=== PATIENT | female | born 1980 | race Caucasian/White ===

== ENCOUNTER 2018-03-04 00:16 | Emergency (ER) | payer MEDICAID, OTHER ==
[~2018-03-04 00:16] MED LIST: CEPH500C3 PO
[2018-03-04 00:19] VITALS: BP 133/84; PULSE 66; RESP 15; TEMP 98.4; O2SAT 100
[2018-03-04] MEDS ORDERED: ONDANSETRON HCL 4 MG/2 ML VIAL ONE (00:27)
--- NOTE | 2018-03-04 01:34 | PD ---
HPI Chief Complaint: GI Complaint Time Seen by Provider: 01:19 Travel History International Travel<30 days: No Contact w/Intl Traveler<30days: No Traveled to known affect area: No History of Present Illness HPI The patient is a 37 year old female who presents to the [facility] emergency department with a history of abdominal pain and vomiting that began a few hours ago. Her abdominal pain is in the lower abdomen bilaterally. It is coming and going. It is sharp in character. She has had nausea and vomiting 10 x since the onset. She denies any diarrhea. Her last BM was earlier today. The patient denies any history of fever, cough, congestion, neck pain, chest pain, shortness of breath, urinary symptoms, or neurologic symptoms. LMP: this past weekend. PFSH Past Medical History Narrative Medical The patient's past medical history is significant for arthritis, anxiety, depression, ptsd, hypertension. Arthritis: Yes Asthma: No Autoimmune Disease: No Anxiety: Yes Depression: Yes Heart Rhythm Problems: No Cancer: No Cardiovascular Problems: No High Cholesterol: No Chemotherapy: No Chest Pain: No Congestive Heart Failure: No COPD: No Cerebrovascular Accident: No Diabetes: No Diminished Hearing: No Endocrine: No Gastrointestinal Disorders: Yes GERD: No Genitourinary: No Headaches: Yes Hiatal Hernia: No Heparin Induced Thrombocytopen: No Hypertension: Yes Immune Disorder: No Implanted Vascular Access Dvce: Yes Kidney Stones: No Musculoskeletal: Yes Neurologic: Yes Psychiatric: Yes (PTSD) Reproductive: No Respiratory: No Immunizations Current: Yes Migraines: Yes Radiation Therapy: No Renal Failure: No Seizures: No Sickle Cell Disease: No Sleep Apnea: No Thyroid Disease: No Ulcer: No Tetanus Vaccination: < 5 Years Influenza Vaccination: No ?: Not LMP: 03/01/2018 : 5 Para: 1 Miscarriage: 2 : 1 Dilation and Curettage (D&C): Yes Past Surgical History Narrative Surgical The patient's past surgical history is significant for right ankle ORIF, tonsil and adenoidectomy, cholecystectomy, dilation and curettage. Abdominal Surgery: Yes (gallbladder) AICD: No Arteriovenous Shunt: No Body Medical Devices: right ankle Cardiac Surgery: No Cholecystectomy: Yes Ear Surgery: No Endocrine Surgery: No Eye Surgery: No Genitourinary Surgery: No Gynecologic Surgery: Yes (d&c - 2002) Insulin Pump: No Joint Replacement: No Oral Surgery: Yes (tonsils and adenoids) Pacemaker: No Thoracic Surgery: No Tonsillectomy: Yes Other Surgery: Yes Social History Alcohol Use: Yes (rarely ) Tobacco Use: Yes Substance Use: No Allergies-Medications (Allergen,Severity, Reaction): Coded Allergies: No Known Allergies (Verified Allergy, Unknown, 03/04/18) Reported Meds & Prescriptions Reported Meds & Active Scripts Active Prochlorperazine Supp (Prochlorperazine) 25 Mg Supp 25 Mg RECTAL Q12HR PRN 1 Days Keflex (Cephalexin Monohydrate) 500 Mg Cap 500 Mg PO Q8 Review of Systems Except as stated in HPI: all other systems reviewed are Neg General / Constitutional: No: Fever Eyes: No: Visual changes HENT: No: Headaches Cardiovascular: No: Chest Pain or Discomfort Respiratory: No: Shortness of Breath Gastrointestinal: Positive: Nausea, Vomiting, Abdominal Pain, No: Diarrhea, Hematemesis, Changes in Bowel Habits, Indigestion, Loss of Appetite Genitourinary: No: Dysuria Musculoskeletal: No: Pain Skin: No Rash Neurologic: No: Weakness Psychiatric: No: Depression Endocrine: No: Polydipsia Hematologic/Lymphatic: No: Easy Bruising Physical Exam Narrative General: The patient is a well-developed well-nourished female, uncomfortable appearing on arrival, intermittently dry heaving, retching. Head and Neck exam: Head is normocephalic atraumatic. Eyes: EOMI, pupils are equal round and reactive to light. Nose: Midline septum with pink mucous membranes Mouth: Dentition unremarkable. Moist mucus membranes. Posterior oropharynx is not erythematous. No tonsillar hypertrophy. Uvula midline. Airway patent. Neck: No palpable lymphadenopathy. No nuchal rigidity. No thyromegaly. Cardiovascular: Regular rate and rhythm without murmurs, gallops, or rubs. No pulse deficit to the extremities on simultaneous auscultation and palpation of her radial artery. Lungs: Clear to auscultation bilaterally. No wheezes, rhonchi, or rales. Abdomen: Soft, with reported tenderness on palpation in bilateral lower quadrants of the abdomen. No point tenderness specifically on palpation of her McBurney's point. Negative Fernando sign. Normal bowel sounds are audible. No guarding, rebound, or rigidity. Extremities: No clubbing, cyanosis, or edema. 2+ pulses in all 4 extremities. Back: No spinous process tenderness to palpation. No costovertebral angle tenderness to palpation. Neurologic Exam: Grossly nonfocal Skin Exam: No rash noted. Intact skin that is warm and diaphoretic Data Data Last Documented VS Vital Signs Date Time Temp Pulse Resp B/P (MAP) Pulse Ox O2 Delivery O2 Flow Rate FiO2 03/04/18 00:19 98.4 66 15 133/84 (100) 100 Orders Orders Ondansetron Inj (Zofran Inj) (03/04/18 00:27) Complete Blood Count With Diff (03/04/18 01:39) Comprehensive Metabolic Panel (03/04/18 01:39) C-Reactive Protein (Crp) (03/04/18 01:39) Lipase (03/04/18 01:39) Urinalysis - C+S If Indicated (03/04/18 01:39) Magnesium (Mg) (03/04/18 01:39) Iv Access Insert/Monitor (03/04/18 01:39) Ecg Monitoring (03/04/18 01:39) Oximetry (03/04/18 01:39) Ed Urine Pregnancytest Poc (03/04/18 01:39) Sodium Chlor 0.9% 1000 Ml Inj (Ns 1000 M (03/04/18 02:30) Ondansetron Inj (Zofran Inj) (03/04/18 02:30) Sodium Chlor 0.9% 1000 Ml Inj (Ns 1000 M (03/04/18 03:00) Prochlorperazine Inj (Compazine Inj) (03/04/18 03:00) Ct Abd/Pel W Iv Contrast(Rout) (03/04/18 03:00) Ketorolac Inj (Toradol Inj) (03/04/18 03:15) Iohexol 350 Inj (Omnipaque 350 Inj) (03/04/18 03:48) Oral Rehydration (03/04/18 04:40) Prochlorperazine Inj (Compazine Inj) (03/04/18 05:00) Cath For Specimen (03/04/18 05:33) Labs Laboratory Tests Test 03/04/18 01:30 03/04/18 06:10 White Blood Count 13.0 TH/MM3 Red Blood Count 4.66 MIL/MM3 Hemoglobin 14.1 GM/DL Hematocrit 42.5 % Mean Corpuscular Volume 91.1 FL Mean Corpuscular Hemoglobin 30.3 PG Mean Corpuscular Hemoglobin Concent 33.3 % Red Cell Distribution Width 13.6 % Platelet Count 354 TH/MM3 Mean Platelet Volume 9.7 FL Neutrophils (%) (Auto) 75.1 % Lymphocytes (%) (Auto) 20.7 % Monocytes (%) (Auto) 2.3 % Eosinophils (%) (Auto) 1.3 % Basophils (%) (Auto) 0.6 % Neutrophils # (Auto) 9.8 TH/MM3 Lymphocytes # (Auto) 2.7 TH/MM3 Monocytes # (Auto) 0.3 TH/MM3 Eosinophils # (Auto) 0.2 TH/MM3 Basophils # (Auto) 0.1 TH/MM3 CBC Comment DIFF FINAL Differential Comment Blood Urea Nitrogen 12 MG/DL Creatinine 0.84 MG/DL Random Glucose 108 MG/DL Total Protein 8.5 GM/DL Albumin 4.0 GM/DL Calcium Level 9.2 MG/DL Magnesium Level 2.2 MG/DL Alkaline Phosphatase 84 U/L Aspartate Amino Transf (AST/SGOT) 24 U/L Alanine Aminotransferase (ALT/SGPT) 26 U/L Total Bilirubin 0.3 MG/DL Sodium Level 141 MEQ/L Potassium Level 4.4 MEQ/L Chloride Level 107 MEQ/L Carbon Dioxide Level 26.5 MEQ/L Anion Gap 8 MEQ/L Estimat Glomerular Filtration Rate 77 ML/MIN C-Reactive Protein LESS THAN 0.29 MG/DL Lipase 210 U/L Urine Color LIGHT-YELLOW Urine Turbidity CLEAR Urine pH 7.0 Urine Specific Shubert GREATER THAN 1.050 Urine Protein NEG mg/dL Urine Glucose (UA) NEG mg/dL Urine Ketones 10 mg/dL Urine Occult Blood NEG Urine Nitrite NEG Urine Bilirubin NEG Urine Urobilinogen LESS THAN 2.0 MG/DL Urine Leukocyte Esterase NEG Urine WBC LESS THAN 1 /hpf Urine Squamous Epithelial Cells 2 /hpf Urine Mucus FEW /lpf Microscopic Urinalysis Comment CULT NOT INDICATED MDM Medical Decision Making Medical Screen Exam Complete: Yes Emergency Medical Condition: Yes Medical Record Reviewed: Yes Interpretation(s) Last Impressions Abdomen/Pelvis CT 03/04/18 0300 Signed Impressions: Service Date/Time: Sunday, March 04, 2018 03:48 - CONCLUSION: 1. Previous cholecystectomy. 2 cm left ovarian cyst. No obstruction, free fluid or free air. 2. Lobulated kidneys with multiple areas of suspected renal parenchymal scarring that have increased from 2015. Wai Hills MD Differential Diagnosis Bowel obstruction, versus appendicitis, versus pancreatitis, Narrative Course During the course of the patient's emergency department visit, the patient's history, examination, and differential diagnosis were reviewed with the patient. The patient was placed on a classroom monitor with oximetry and frequent blood pressure monitoring. The patient had IV access obtained and blood work sent for analysis. The patient was initially provided normal saline 2 L and total IV fluid bolus while in the emergency department. The patient was initially given Zofran for nausea without much response, followed by Compazine 5 mg IV which improved the nausea and was repeated 1. The patient's laboratory studies were reviewed and remarkable for white count of 13, hemoglobin 14.1, platelets 354 with neutrophils 75.1, CMP is remarkable for GFR 77, glucose 108, C-reactive protein less than 0.29, total protein 8.5, lipase 210, urinalysis shows concentrated urine 10 ketones otherwise unremarkable Radiology studies were reviewed and remarkable for a CT scan of the abdomen and pelvis shows previous cholecystectomy, 2 cm left ovarian cyst, no obstruction, free fluid, or free air. Lobulated kidneys with multiple areas of suspected renal parenchymal scarring that have increased from 2015. The patient was able to tolerate p.o. hydration. The patient will be discharged home with a prescription for Compazine suppository. The patient is instructed to follow-up with her primary care physician for reexamination in 2 days. The patient is instructed to push fluids with electrolyte rich solution such as Pedialyte or Gatorade. The patient is resting comfortably and feels better, is alert and in no distress. The patient's results and examination findings were discussed with the patient. The repeat examination is unremarkable and benign. The history, exam, diagnostic testing, and current condition do not suggest any significant pathology to warrant further testing, continued ED treatment, admission, or surgical evaluation at this point. The vital signs have been stable. The patient does not have uncontrollable pain, intractable vomiting, or other significant symptoms. The patient's condition is stable and appropriate for discharge. The patient will pursue further outpatient evaluation with a primary care physician or other designated or consulting physician as indicated in the discharge instructions. The patient expressed understanding and was agreeable with this plan. Diagnosis Primary Impression: Abdominal pain Qualified Codes: R10.30 - Lower abdominal pain, unspecified Additional Impression: Nausea & vomiting Qualified Codes: R11.2 - Nausea with vomiting, unspecified Referrals: Primary Care Physician 2 days Patient Instructions: Abdominal Pain (ED), Acute Nausea and Vomiting (ED), General Instructions Med/Other Pt SpecificInfo: Prescription(s) given Scripts Prochlorperazine Supp (Prochlorperazine Supp) 25 Mg Supp 25 MG RECTAL Q12HR Y for NAUSEA OR VOMITING for 1 Day, SUPP 0 Refills Prov: Rosette Recinos MD 03/04/18 Disposition: DISCHARGE HOME Condition: Stable Rosette Recinos MD Mar 04, 2018 01:34
[2018-03-04 02:04] LABS: AUTOMATED NEUTROPHIL # 9.8 TH/MM3 (1.8-7.7); BASOPHIL # 0.1 TH/MM3 (0-0.2); BASOPHIL % 0.6 % (0.0-2.0); EOSINOPHIL # 0.2 TH/MM3 (0-0.4); EOSINOPHIL % 1.3 % (0.0-4.0); HEMATOCRIT 42.5 % (35.0-46.0); HEMOGLOBIN 14.1 GM/DL (11.6-15.3); LYMPH % 20.7 % (9.0-44.0); LYMPHOCYTE # 2.7 TH/MM3 (1.0-4.8); MEAN CELL VOLUME 91.1 FL (80.0-100.0); MEAN CORPUSCULAR HEMOGLOBIN 30.3 PG (27.0-34.0); MEAN CORPUSCULAR HGB CONC 33.3 % (32.0-36.0); MEAN PLATELET VOLUME 9.7 FL (7.0-11.0); MONO % 2.3 % (0.0-8.0); MONOCYTE # 0.3 TH/MM3 (0-0.9); NEUT % 75.1 % (16.0-70.0); PLATELET COUNT 354 TH/MM3 (150-450); RED BLOOD COUNT 4.66 MIL/MM3 (4.00-5.30); RED CELL DISTRIBUTION WIDTH 13.6 % (11.6-17.2)
[2018-03-04 02:28] LABS: ALKALINE PHOSPHATASE 84 U/L (45-117); TOTAL BILIRUBIN ADULT 0.3 MG/DL (0.2-1.0); TOTAL PROTEIN 8.5 GM/DL (6.4-8.2)
[2018-03-04] MEDS ORDERED: ONDANSETRON HCL 4 MG/2 ML VIAL IV ONE (02:30)
[2018-03-04] MEDS ORDERED: SODIUM CHLOR 0.9% 1000 ML INJ 1,000 ML IV ONE ×2 (02:30→03:00)
[2018-03-04 02:31] LABS: ALT (GPT) 26 U/L (10-53); AST (GOT) 24 U/L (15-37); BICARBONATE 26.5 MEQ/L (21.0-32.0); BLOOD UREA NITROGEN 12 MG/DL (7-18); C-REACTIVE PROTEIN LESS THAN 0.29 MG/DL (0.00-0.30); CALCIUM 9.2 MG/DL (8.5-10.1); CHLORIDE 107 MEQ/L (98-107); CREATININE 0.84 MG/DL (0.50-1.00); GLOMERULAR FILTRATION RATE 77 ML/MIN (>89); GLUCOSE,RANDOM 108 MG/DL (74-106); MAGNESIUM 2.2 MG/DL (1.5-2.5); SODIUM (NA) 141 MEQ/L (136-145)
[2018-03-04] MEDS ORDERED: PROCHLORPERAZINE INJ 10 MG/2 ML VIAL IV PUSH ONE ×2 (03:00→05:00)
[2018-03-04] MEDS ORDERED: KETOROLAC TROMETHAMINE 30 MG/ML (IVP) VIAL IV PUSH ONE (03:15)
[2018-03-04] MEDS ORDERED: IOHEXOL 350 MG/ML 10 ML VIAL (for RAD DIAG) IVCONTRAST ONE (03:48)
--- NOTE | 2018-03-04 04:03 | RADRPT ---
EXAM DATE/TIME: 03/04/2018 03:48 [facility] COMPARISON: No previous studies available for comparison. INDICATIONS : Abdomen pain with vomiting. IV CONTRAST: 94 cc Omnipaque 350 (iohexol) IV ORAL CONTRAST: No oral contrast ingested. RADIATION DOSE: 9.74 CTDIvol (mGy) MEDICAL HISTORY : Hypertension. SURGICAL HISTORY : Cholecystectomy. ENCOUNTER: Initial ACUITY: 1 day PAIN SCALE: 7/10 LOCATION: abdomen TECHNIQUE: Volumetric scanning of the abdomen and pelvis was performed. Using automated exposure control and ad justment of the mA and/or kV according to patient size, radiation dose was kept as low as reasonably achievable to obtain optimal diagnostic quality images. DICOM format image data is available electro nically for review and comparison. FINDINGS: Lung bases are clear. No acute findings in the liver, spleen, adrenals or pancreas. Previous cholecys tectomy. Kidneys have a slightly lobulated appearance slightly worse than in 2015. No pelvic masses. No free fluid. No adenopathy. Probable 2 cm left ovarian cyst. CONCLUSION: 1. Previous cholecystectomy. 2 cm left ovarian cyst. No obstruction, free fluid or free air. 2. Lobulated kidneys with multiple areas of suspected renal parenchymal scarring that have increased from 2015. Wai Hills MD on March 04, 2018 at 3:56 Board Certified Radiologist. This report was verified electronically.
[2018-03-04] MEDS ORDERED: PROC25SU22 RECTAL (06:28)
[2018-03-04 06:46] LABS: BILIRUBIN, URINE NEG (NEG); BLOOD, URINE NEG (NEG); GLUCOSE,URINE NEG (NEG); KETONE, URINE 10 mg/dL (NEG); MUCUS URINE FEW /lpf (OCC); NITRITE,URINE NEG (NEG); SQUAMOUS EPITHELIAL CELL URINE 2 /hpf (0-5); URINE COLOR LIGHT-YELLOW (YELLW/STRAW); URINE LEUKOCYTE ESTERASE NEG (NEG)
[2018-03-04 07:35] VITALS: BP 163/82
[2018-03-04 08:07] VITALS: O2SAT 98
== END 2018-03-04 07:45 | disposition home or self-care (01) ==
LOC: NEPC 00:16
DX: R10.30 Lower abdominal pain, unspecified (principal); R11.2 Nausea with vomiting, unspecified; Q63.1 Lobulated, fused and horseshoe kidney; N83.202 Unspecified ovarian cyst, left side; I10 Essential (primary) hypertension; F43.10 Post-traumatic stress disorder, unspecified; F32.9 Major depressive disorder, single episode, unspecified; Z90.49 Acquired absence of other specified parts of digestive tract; Z72.0 Tobacco use
CPT/HCPCS: 74177; 80053; 81001; 83690; 83735; 85025; 86140; 96374; 96375; 99284; J0780; J1885; J2405; J7030; Q9967

== ENCOUNTER 2018-03-05 20:01 | Observation (INO) | payer OTHER ==
[~2018-03-05] VITALS: Ht 157.5 cm; Wt 75.0 kg
[~2018-03-05 20:01] MED LIST changes: +PROC25SU22 RECTAL
[2018-03-05 20:06] VITALS: BP 171/112; PULSE 83; RESP 18; TEMP 98.1; O2SAT 98
[2018-03-05 20:09] VITALS: O2SAT 98
[2018-03-05] MEDS ORDERED: SODIUM CHLOR 0.9% 1000 ML INJ 1,000 ML IV ONE ×2 (20:15→22:45)
[2018-03-05] MEDS ORDERED: METOCLOPRAMIDE HCL 10 MG/2 ML VIAL IV PUSH ONE ×2 (20:15→23:30)
--- NOTE | 2018-03-05 20:20 | PD ---
HPI Chief Complaint: GI Complaint Time Seen by Provider: 20:06 Travel History International Travel<30 days: No Contact w/Intl Traveler<30days: No Traveled to known affect area: No History of Present Illness HPI The patient is a 37 year old female who presents to the [facility] emergency department with a history of reportedly not feeling well for the last 3 days. The patient reports having symptoms of abdominal pain, a burning sensation in her chest, and recurrent vomiting too many times to count. She reports that her emesis appears to be brown. The patient was evaluated in the emergency department regarding this on March 04. Laboratory studies and CT scan of the abdomen and pelvis were done at that time which showed no acute abnormality. The patient reports that because she has been coming to the emergency department for her recent illness she has also been experiencing increased anxiety with panic attacks. She reports having history of anxiety, depression, and posttraumatic stress disorder. She reports that she believes that her anxiety is being triggered as this is the place that she had her miscarriage a few months ago. The patient reports that when she found out that she was she stopped taking her psychiatric medications which include Vistaril, trazodone, Cymbalta, and Ativan. The patient reports that at times she coughs with the acid washing up in the back of her throat. She denies being on any acid reducers or having any prior history of acid reflux, peptic ulcer disease, or gastritis per she denies any alcohol consumption. On review of systems otherwise, she denies having any recent known fevers, neck pain, shortness of breath, diarrhea, urinary symptoms, or neurologic symptoms. [facility] Past Medical History Narrative Medical The patient's past medical history is significant for arthritis, anxiety disorder, depression, posttraumatic stress disorder, hypertension. Arthritis: Yes Asthma: No Autoimmune Disease: No Anxiety: Yes Depression: Yes Heart Rhythm Problems: No Cancer: No Cardiovascular Problems: No High Cholesterol: No Chemotherapy: No Chest Pain: No Congestive Heart Failure: No COPD: No Cerebrovascular Accident: No Diabetes: No Diminished Hearing: No Endocrine: No Gastrointestinal Disorders: Yes GERD: No Genitourinary: No Headaches: Yes Hiatal Hernia: No Heparin Induced Thrombocytopen: No Hypertension: Yes Immune Disorder: No Implanted Vascular Access Dvce: Yes Kidney Stones: No Musculoskeletal: Yes Neurologic: Yes Psychiatric: Yes (PTSD) Reproductive: No Respiratory: No Immunizations Current: Yes Migraines: Yes Radiation Therapy: No Renal Failure: No Seizures: No Sickle Cell Disease: No Sleep Apnea: No Thyroid Disease: No Ulcer: No Tetanus Vaccination: Unknown Influenza Vaccination: No ?: Not LMP: 02/28/18 : 5 Para: 1 Miscarriage: 2 : 1 Dilation and Curettage (D&C): Yes Past Surgical History Narrative Surgical The patient's past surgical history is significant for right ankle ORIF, tonsil and adenoidectomy, cholecystectomy, dilation and curettage Abdominal Surgery: Yes (gallbladder) AICD: No Arteriovenous Shunt: No Body Medical Devices: right ankle Cardiac Surgery: No Cholecystectomy: Yes Ear Surgery: No Endocrine Surgery: No Eye Surgery: No Genitourinary Surgery: No Gynecologic Surgery: Yes (d&c - 2002) Insulin Pump: No Joint Replacement: No Oral Surgery: Yes (tonsils and adenoids) Pacemaker: No Thoracic Surgery: No Tonsillectomy: Yes Other Surgery: Yes Social History Alcohol Use: Yes (rarely ) Tobacco Use: Yes (3 cigarettes per day) Substance Use: Yes (marijuana) Allergies-Medications (Allergen,Severity, Reaction): Coded Allergies: No Known Allergies (Verified Allergy, Unknown, 03/04/18) Reported Meds & Prescriptions Reported Meds & Active Scripts Active Prochlorperazine Supp (Prochlorperazine) 25 Mg Supp 25 Mg RECTAL Q12HR PRN 1 Days Review of Systems Except as stated in HPI: all other systems reviewed are Neg General / Constitutional: No: Fever Eyes: No: Visual changes HENT: No: Headaches Cardiovascular: Positive: Chest Pain or Discomfort (A burning sensation), No: Dyspnea on exertion Respiratory: Positive: Cough, No: Shortness of Breath Gastrointestinal: Positive: Nausea, Vomiting, Abdominal Pain, Indigestion, No: Diarrhea, Constipation, Changes in Bowel Habits, Loss of Appetite Genitourinary: No: Dysuria Musculoskeletal: No: Pain Skin: No Rash Neurologic: No: Weakness, Focal Abnormalities, Change in Mentation, Slurred Speech, Sensory Disturbance Psychiatric: No: Depression Endocrine: No: Polydipsia Hematologic/Lymphatic: No: Easy Bruising Physical Exam Narrative General: The patient is a well-developed well-nourished female, uncomfortable appearing on arrival with intermittent dry heaving, retching. She does have an emesis basin at the bedside that has brown emesis in it. No blood per Head and Neck exam: Head is normocephalic atraumatic. Eyes: EOMI, pupils are equal round and reactive to light. Nose: Midline septum with pink mucous membranes Mouth: Dentition unremarkable. Moist mucus membranes. Posterior oropharynx is not erythematous. No tonsillar hypertrophy. Uvula midline. Airway patent. Neck: No palpable lymphadenopathy. No nuchal rigidity. No thyromegaly. Cardiovascular: Regular rate and rhythm without murmurs, gallops, or rubs. No pulse deficit to the extremities on simultaneous auscultation and palpation of her radial artery. Lungs: Clear to auscultation bilaterally. No wheezes, rhonchi, or rales. Abdomen: Soft, without tenderness to palpation in all 4 quadrants of the abdomen. No guarding, rebound, or rigidity. Normal bowel sounds are audible. No tenderness on palpation of McBurney's point. Negative Fernando sign. Extremities: No clubbing, cyanosis, or edema. 2+ pulses in all 4 extremities. No calf tenderness on palpation peer Back: No costovertebral angle tenderness to palpation. Neurologic Exam: Grossly nonfocal. Skin Exam: No rash noted. Intact skin that is warm and dry. Data Data Last Documented VS Vital Signs Date Time Temp Pulse Resp B/P (MAP) Pulse Ox O2 Delivery O2 Flow Rate FiO2 03/05/18 20:09 98 Room Air 03/05/18 20:06 98.1 83 18 171/112 (131) Orders Orders Complete Blood Count With Diff (03/05/18 20:07) Comprehensive Metabolic Panel (03/05/18 20:07) Lipase (03/05/18 20:07) Urinalysis - C+S If Indicated (03/05/18 20:07) Magnesium (Mg) (03/05/18 20:07) Iv Access Insert/Monitor (03/05/18 20:07) Ecg Monitoring (03/05/18 20:07) Oximetry (03/05/18 20:07) Drug Screen, Random Urine (03/05/18 20:07) Alcohol (Ethanol) (03/05/18 20:07) Sodium Chlor 0.9% 1000 Ml Inj (Ns 1000 M (03/05/18 20:15) Metoclopramide Inj (Reglan Inj) (03/05/18 20:15) Pantoprazole Inj (Protonix Inj) (03/05/18 20:30) Morphine Inj (Morphine Inj) (03/05/18 20:30) Chest, Single Ap (03/05/18 20:19) Ed Urine Pregnancytest Poc (03/05/18 20:19) Urine Culture (03/05/18 20:15) Sodium Chlor 0.9% 1000 Ml Inj (Ns 1000 M (03/05/18 22:45) Ceftriaxone Inj (Rocephin Inj) (03/05/18 22:45) Potassium Chloride (Kcl) (03/05/18 22:45) Admit Order (Ed Use Only) (03/05/18 22:54) Labs Laboratory Tests Test 03/05/18 20:15 White Blood Count 9.7 TH/MM3 Red Blood Count 4.79 MIL/MM3 Hemoglobin 14.4 GM/DL Hematocrit 42.2 % Mean Corpuscular Volume 88.0 FL Mean Corpuscular Hemoglobin 30.0 PG Mean Corpuscular Hemoglobin Concent 34.1 % Red Cell Distribution Width 13.5 % Platelet Count 349 TH/MM3 Mean Platelet Volume 8.9 FL Neutrophils (%) (Auto) 77.7 % Lymphocytes (%) (Auto) 18.9 % Monocytes (%) (Auto) 3.1 % Eosinophils (%) (Auto) 0.0 % Basophils (%) (Auto) 0.3 % Neutrophils # (Auto) 7.5 TH/MM3 Lymphocytes # (Auto) 1.8 TH/MM3 Monocytes # (Auto) 0.3 TH/MM3 Eosinophils # (Auto) 0.0 TH/MM3 Basophils # (Auto) 0.0 TH/MM3 CBC Comment DIFF FINAL Differential Comment Urine Color YELLOW Urine Turbidity HAZY Urine pH 8.0 Urine Specific [place] 1.025 Urine Protein 100 mg/dL Urine Glucose (UA) NEG mg/dL Urine Ketones 80 mg/dL Urine Occult Blood TRACE Urine Nitrite NEG Urine Bilirubin NEG Urine Urobilinogen 2.0 MG/DL Urine Leukocyte Esterase MOD Urine RBC 8 /hpf Urine WBC 22 /hpf Urine Squamous Epithelial Cells 27 /hpf Urine Bacteria MOD /hpf Urine Hyaline Casts 2 /lpf Urine Mucus MOD /lpf Microscopic Urinalysis Comment CULTURE INDICATED Blood Urea Nitrogen 11 MG/DL Creatinine 0.87 MG/DL Random Glucose 102 MG/DL Total Protein 8.2 GM/DL Albumin 4.3 GM/DL Calcium Level 9.8 MG/DL Magnesium Level 2.0 MG/DL Alkaline Phosphatase 84 U/L Aspartate Amino Transf (AST/SGOT) 7 U/L Alanine Aminotransferase (ALT/SGPT) 21 U/L Total Bilirubin 0.3 MG/DL Sodium Level 140 MEQ/L Potassium Level 3.3 MEQ/L Chloride Level 102 MEQ/L Carbon Dioxide Level 27.7 MEQ/L Anion Gap 10 MEQ/L Estimat Glomerular Filtration Rate 74 ML/MIN Lipase 143 U/L Urine Opiates Screen NEG Urine Barbiturates Screen NEG Urine Amphetamines Screen NEG Urine Benzodiazepines Screen NEG Urine Cocaine Screen POS Urine Cannabinoids Screen POS Ethyl Alcohol Level LESS THAN 3 MG/DL MDM Medical Decision Making Medical Screen Exam Complete: Yes Emergency Medical Condition: Yes Medical Record Reviewed: Yes Interpretation(s) Last Impressions Chest X-Ray 03/05/182018 Signed Impressions: Service Date/Time: Monday, March 05, 2018 20:29 - CONCLUSION: No evidence of acute cardiopulmonary disease. Danny Gao MD Differential Diagnosis Aspiration, versus acid reflux, versus gastritis, viral syndrome, versus pancreatitis, versus electrolyte derangements, versus dehydration Narrative Course During the course of the patient's emergency department visit, the patient's history, examination, and differential diagnosis were reviewed with the patient. The patient was placed on a professor of medicine with oximetry and frequent blood pressure monitoring. The patient had IV access obtained and blood work sent for analysis. The patient was initially provided normal saline 1 L IV fluid bolus, Reglan 5 mg IV, Protonix 40 mg IV The patient's studies were reviewed and remarkable for A white count of 9.7, hemoglobin 14.4, platelets 349 with 77.7 neutrophils. CMP is remarkable for potassium of 3.3, GFR 74, AST 7, lipase 143. An alcohol level that is less than 3, urine drug screen is positive for cannabinoids and cocaine. Urinalysis shows signs of urinary tract infection. The patient was started on Rocephin 1 g IV, continued on a second liter of normal saline IV. The patient continued to have nausea and vomiting. The patient was given an additional dose of antiemetic. The patient will be admitted to the hospital for intractable nausea vomiting. The patient's results were discussed with the patient, including the plan of care. I explained that further testing and/ or monitoring is indicated based on the patient's history, examination, and/ or laboratory findings. Therefore, I recommended admission for additional evaluation. The patient expressed understanding and was agreeable with this plan. The patient was admitted to the hospital in stable condition and sent to a bed under the care of the [facility] service. Physician Communication Physician Communication The patient's case including history, pertinent physical examination findings, and laboratory studies were discussed with Dr. Jalloh. It was agreed that the patient would be admitted to the [facility] service. Diagnosis Primary Impression: Nausea & vomiting Qualified Codes: R11.2 - Nausea with vomiting, unspecified Additional Impression: Urinary tract infection Qualified Codes: N39.0 - Urinary tract infection, site not specified; R31.9 - Hematuria, unspecified Admitting Information Admitting Physician Requests: Rosette Ramirez MD Mar 05, 2018 20:20
[2018-03-05] MEDS ORDERED: PANTOPRAZOLE SODIUM 40 MG VIAL IV PUSH ONE (20:30)
[2018-03-05] MEDS ORDERED: MORPHINE SULFATE 2 MG/ML SYRINGE IV PUSH ONE (20:30)
[2018-03-05 20:38] LABS: AUTOMATED NEUTROPHIL # 7.5 TH/MM3 (1.8-7.7); BASOPHIL % 0.3 % (0.0-2.0); HEMATOCRIT 42.2 % (35.0-46.0); HEMOGLOBIN 14.4 GM/DL (11.6-15.3); LYMPH % 18.9 % (9.0-44.0); LYMPHOCYTE # 1.8 TH/MM3 (1.0-4.8); MEAN CORPUSCULAR HGB CONC 34.1 % (32.0-36.0); MEAN PLATELET VOLUME 8.9 FL (7.0-11.0); MONO % 3.1 % (0.0-8.0); MONOCYTE # 0.3 TH/MM3 (0-0.9); NEUT % 77.7 % (16.0-70.0); PLATELET COUNT 349 TH/MM3 (150-450); RED BLOOD COUNT 4.79 MIL/MM3 (4.00-5.30); RED CELL DISTRIBUTION WIDTH 13.5 % (11.6-17.2); WHITE BLOOD COUNT 9.7 TH/MM3 (4.0-11.0)
--- NOTE | 2018-03-05 20:45 | RADRPT ---
EXAM DATE/TIME: 03/05/2018 20:29 [place] COMPARISON: No previous studies available for comparison. INDICATIONS : Cough. MEDICAL HISTORY : None. SURGICAL HISTORY : None. ENCOUNTER: Initial ACUITY: 1 day PAIN SCORE: 0/10 LOCATION: Bilateral chest FINDINGS: A single view of the chest demonstrates the lungs to be symmetrically aerated without evidence of mas s, infiltrate or effusion. The cardiomediastinal contours are unremarkable. Osseous structures are intact. CONCLUSION: No evidence of acute cardiopulmonary disease. Danny Gao MD on March 05, 2018 at 20:43 Board Certified Radiologist. This report was verified electronically.
[2018-03-05 20:49] LABS: BACTERIA, URINE MOD /hpf; BILIRUBIN, URINE NEG (NEG); BLOOD, URINE TRACE (NEG); GLUCOSE,URINE NEG (NEG); HYALINE CAST, URINE 2 /lpf (RARE); KETONE, URINE 80 mg/dL (NEG); MUCUS URINE MOD /lpf (OCC); NITRITE,URINE NEG (NEG); SQUAMOUS EPITHELIAL CELL URINE 27 /hpf (0-5); URINE COLOR YELLOW (YELLW/STRAW); URINE LEUKOCYTE ESTERASE MOD (NEG)
[2018-03-05 21:03] LABS: ALBUMIN 4.3 GM/DL (3.4-5.0); AST (GOT) 7 U/L (15-37); BICARBONATE 27.7 MEQ/L (21.0-32.0); BLOOD UREA NITROGEN 11 MG/DL (7-18); CALCIUM 9.8 MG/DL (8.5-10.1); CHLORIDE 102 MEQ/L (98-107); CREATININE 0.87 MG/DL (0.50-1.00); GLOMERULAR FILTRATION RATE 74 ML/MIN (>89); GLUCOSE,RANDOM 102 MG/DL (74-106); SODIUM (NA) 140 MEQ/L (136-145)
[2018-03-05 21:07] LABS: ALKALINE PHOSPHATASE 84 U/L (45-117); ALT (GPT) 21 U/L (10-53); TOTAL BILIRUBIN ADULT 0.3 MG/DL (0.2-1.0); TOTAL PROTEIN 8.2 GM/DL (6.4-8.2)
[2018-03-05] MEDS ORDERED: cefTRIAXone INJ 1,000 MG in SODIUM CHLORIDE 0.9% INJ 100 ML IV ONE (22:45)
[2018-03-05] MEDS ORDERED: POTASSIUM CHLORIDE 20 MEQ CONTROLLED RELEASE TAB PO ONE (22:45)
[2018-03-05 22:58] VITALS: BP 158/81; PULSE 89; RESP 18; O2SAT 99
[2018-03-05] MEDS ORDERED: ACETAMINOPHEN 325 MG TAB PO ONE (23:30)
--- NOTE | 2018-03-06 00:40 | HHI.HP ---
[facility] Primary [facility] Physician Danny Roman MD Admission Diagnosis Intractable vomiting, UTI Diagnoses: Travel History International Travel<30 Days: No Contact w/Intl Traveler <30 Da: No Traveled to Known Affected Are: No History of Present Illness 37-year-old female with a past medical history significant for anxiety presents to the emergency department for the second time in 24 hours for the evaluation of nausea/vomiting. The patient reports her symptoms started approximately 3 days ago. She was seen in the emergency department yesterday, discharged with Compazine however given insurance complications she ended up receiving Phenergan. She reports the Phenergan did not relieve her nausea and vomiting and she has been unable to tolerate any p.o. until her arrival in the emergency department today. She endorses subjective fevers/chills. Denies any chest pain or shortness of breath. Crampy abdominal pain. No weakness or fatigue. No lateralizing signs/symptoms. No dysuria. Review of Systems Except as stated in HPI: all other systems reviewed are Neg Past Family Social History Past Medical History Anxiety Past Surgical History Tonsillectomy Cholecystectomy Reported Medications Reported Meds & Active Scripts Active Prochlorperazine Supp (Prochlorperazine) 25 Mg Supp 25 Mg RECTAL Q12HR PRN 1 Days Allergies: Coded Allergies: No Known Allergies (Verified Allergy, Unknown, 03/04/18) Family History Father with coronary artery disease Social History Smokes approximately half a pack per day. Rare alcohol. Positive marijuana. Denies all other illicit drugs. Physical Exam Vital Signs Vital Signs Date Time Temp Pulse Resp B/P (MAP) Pulse Ox O2 Delivery O2 Flow Rate FiO2 03/05/18 22:58 89 18 158/81 (106) 99 Room Air 03/05/18 20:09 98 Room Air 03/05/18 20:06 98.1 83 18 171/112 (131) 98 Physical Exam GENERAL: female sitting up in bed SKIN: No rashes, ecchymoses or lesions. Cool and dry. HEAD: Atraumatic. Normocephalic. No temporal or scalp tenderness. EYES: Pupils equal round and reactive. Extraocular motions intact. No scleral icterus. No injection or drainage. ENT: Nose without bleeding, purulent drainage or septal hematoma. Throat without erythema, tonsillar hypertrophy or exudate. Uvula midline. Airway patent. NECK: Trachea midline. No JVD or lymphadenopathy. Supple, nontender, no meningeal signs. CARDIOVASCULAR: Regular rate and rhythm without murmurs, gallops, or rubs. RESPIRATORY: Clear to auscultation. Breath sounds equal bilaterally. No wheezes , rales, or rhonchi. GASTROINTESTINAL: Abdomen soft, mildly tender to palpation, nondistended. No hepato-splenomegaly, or palpable masses. No guarding. MUSCULOSKELETAL: Extremities without clubbing, cyanosis, or edema. No joint tenderness, effusion, or edema noted. No calf tenderness. NEUROLOGICAL: Awake and alert. Cranial nerves II through XII intact. Motor and sensory grossly within normal limits. Normal speech. Laboratory Laboratory Tests Test 03/05/18 20:15 White Blood Count 9.7 Red Blood Count 4.79 Hemoglobin 14.4 Hematocrit 42.2 Mean Corpuscular Volume 88.0 Mean Corpuscular Hemoglobin 30.0 Mean Corpuscular Hemoglobin Concent 34.1 Red Cell Distribution Width 13.5 Platelet Count 349 Mean Platelet Volume 8.9 Neutrophils (%) (Auto) 77.7 Lymphocytes (%) (Auto) 18.9 Monocytes (%) (Auto) 3.1 Eosinophils (%) (Auto) 0.0 Basophils (%) (Auto) 0.3 Neutrophils # (Auto) 7.5 Lymphocytes # (Auto) 1.8 Monocytes # (Auto) 0.3 Eosinophils # (Auto) 0.0 Basophils # (Auto) 0.0 CBC Comment DIFF FINAL Differential Comment Urine Color YELLOW Urine Turbidity HAZY Urine pH 8.0 Urine Specific [place] 1.025 Urine Protein 100 Urine Glucose (UA) NEG Urine Ketones 80 Urine Occult Blood TRACE Urine Nitrite NEG Urine Bilirubin NEG Urine Urobilinogen 2.0 Urine Leukocyte Esterase MOD Urine RBC 8 Urine WBC 22 Urine Squamous Epithelial Cells 27 Urine Bacteria MOD Urine Hyaline Casts 2 Urine Mucus MOD Microscopic Urinalysis Comment CULTURE INDICATED Blood Urea Nitrogen 11 Creatinine 0.87 Random Glucose 102 Total Protein 8.2 Albumin 4.3 Calcium Level 9.8 Magnesium Level 2.0 Alkaline Phosphatase 84 Aspartate Amino Transf (AST/SGOT) 7 Alanine Aminotransferase (ALT/SGPT) 21 Total Bilirubin 0.3 Sodium Level 140 Potassium Level 3.3 Chloride Level 102 Carbon Dioxide Level 27.7 Anion Gap 10 Estimat Glomerular Filtration Rate 74 Lipase 143 Urine Opiates Screen NEG Urine Barbiturates Screen NEG Urine Amphetamines Screen NEG Urine Benzodiazepines Screen NEG Urine Cocaine Screen POS Urine Cannabinoids Screen POS Ethyl Alcohol Level LESS THAN 3 Date/Time Source Procedure Growth Status 03/05/18 20:15 Urine Random Urine Urine Culture Pending Received Result Diagram: 03/05/18201403/05/182014 Caprini VTE Risk Assessment Caprini VTE Risk Assessment: No/Low Risk (score <= 1) Caprini Risk Assessment Model Point Value = 1 Point Value = 2 Point Value = 3 Point Value = 5 Age 41-60 Minor surgery BMI > 25 kg/m2 Swollen legs Varicose veins or History of unexplained or recurrent spontaneous Oral contraceptives or hormone replacement Sepsis (< 1 month) Serious lung disease, including pneumonia (< 1 month) Abnormal pulmonary function Acute myocardial infarction Congestive heart failure (< 1 month) History of inflammatory bowel disease Medical patient at bed rest Age 61-74 Arthroscopic surgery Major open surgery (> 45 min) Laparoscopic surgery (> 45 min) Malignancy Confined to bed (> 72 hours) Immobilizing plaster cast Central venous access Age >= 75 History of VTE Family history of VTE Factor V Leiden Prothrombin [id number] Lupus anticoagulant Anticardiolipin antibodies Elevated serum homocysteine Heparin-induced thrombocytopenia Other congenital or acquired thrombophilia Stroke (< 1 month) Elective arthroplasty Hip, pelvis, or leg fracture Acute spinal cord injury (< 1 month) Prophylaxis Regimen Total Risk Factor Score Risk Level Prophylaxis Regimen 0-1 Low Early ambulation 2 Moderate Order ONE of the following: *Sequential Compression Device (SCD) *Heparin 5000 units SQ BID 3-4 Higher Order ONE of the following medications: *Heparin 5000 units SQ TID *Enoxaparin/Lovenox 40 mg SQ daily (WT < 150 kg, CrCl > 30 mL/min) *Enoxaparin/Lovenox 30 mg SQ daily (WT < 150 kg, CrCl > 10-29 mL/min) *Enoxaparin/Lovenox 30 mg SQ BID (WT < 150 kg, CrCl > 30 mL/min) AND/OR *Sequential Compression Device (SCD) 5 or more Highest Order ONE of the following medications: *Heparin 5000 units SQ TID (Preferred with Epidurals) *Enoxaparin/Lovenox 40 mg SQ daily (WT < 150 kg, CrCl > 30 mL/min) *Enoxaparin/Lovenox 30 mg SQ daily (WT < 150 kg, CrCl > 10-29 mL/min) *Enoxaparin/Lovenox 30 mg SQ BID (WT < 150 kg, CrCl > 30 mL/min) AND *Sequential Compression Device (SCD) Assessment and Plan Assessment and Plan Assessment/plan: 1. Intractable nausea/vomiting Symptoms are improved at this time Clear liquid diet Zofran and Compazine CT of the abdomen/pelvis negative for acute process Urine test negative 2. Urinary tract infection Rocephin Urine culture pending 3. Hypokalemia Status post repletion in the emergency department Monitor BMP 4. Polysubstance abuse Patient admits to using marijuana however denies any cocaine use Urine drug screen positive for cocaine Cessation counseling provided FEN CLD Electrolytes: monitor and replete prn NS at 100 cc/hour Jacqui Jalloh MD Mar 06, 2018 00:40
[2018-03-06] MEDS ORDERED: ACETAMINOPHEN 325 MG TAB PO PRN (00:45)
[2018-03-06] MEDS ORDERED: NALOXONE HCL 0.4 MG/ML AMP IV PUSH PRN (00:45)
[2018-03-06] MEDS ORDERED: MAGNESIUM HYDROXIDE SUSP 30 ML CUP PO PRN (00:45)
[2018-03-06] MEDS ORDERED: LACTULOSE SYRUP 20 GM/30 ML CUP PO PRN (00:45)
[2018-03-06] MEDS ORDERED: SODIUM CHLORIDE 0.9% FLUSH 10 ML FLUSH IV FLUSH PRN (00:45)
[2018-03-06] MEDS ORDERED: BISACODYL 10 MG SUPP RECTAL PRN (00:45)
[2018-03-06] MEDS ORDERED: SENNOSIDES 8.6 MG TAB PO PRN (00:45)
[2018-03-06 01:05] VITALS: BP 155/81; PULSE 80; RESP 16; TEMP 98.8; O2SAT 96
[2018-03-06] MEDS ORDERED: diphenhydrAMINE HCL 25 MG CAP PO ONE (02:45)
[2018-03-06] MEDS: MORPHINE SULFATE 2 MG/ML SYRINGE IV PRN ×6 (03:17→20:50)
[2018-03-06 05:06] VITALS: BP 176/97; PULSE 75; RESP 16; TEMP 98.6; O2SAT 97
[2018-03-06] MEDS: ONDANSETRON HCL 4 MG/2 ML VIAL IVP PRN ×3 (05:40→21:53)
[2018-03-06 07:14] VITALS: BP 163/91; PULSE 68; RESP 20; TEMP 98.1; O2SAT 96
[2018-03-06] MEDS: SODIUM CHLOR 0.9% 1000 ML INJ 1,000 ML IV SCH ×3 (07:50→20:32)
[2018-03-06] MEDS: SODIUM CHLORIDE 0.9% FLUSH 10 ML FLUSH IV FLUSH SCH ×2 (09:00→20:51)
[2018-03-06 10:50] VITALS: BP 171/96; PULSE 80; RESP 24; TEMP 98.7; O2SAT 99
[2018-03-06] MEDS: DOCUSATE SODIUM 50 MG/SENNA 8.6 MG TAB PO SCH ×2 (10:58→20:50)
--- NOTE | 2018-03-06 15:09 | HHI.PR ---
Subjective Remarks Follow up on patient with nausea and vomiting. Patient seen and examined. Patient continues to complain of ongoing nausea and vomiting. She reports abdominal pain. She endorses chills. She reports dysuria. She denies any diarrhea. She denies any chest pain or dyspnea. She denies any recent dietary changes. She denies any ill contacts. She also reports mid upper back pain that started yesterday and she attributes to possible kidney infection. Patient has never had a scope procedure. She denies any hx of diabetes or gastroparesis. Objective Vitals Vital Signs Date Time Temp Pulse Resp B/P (MAP) Pulse Ox O2 Delivery O2 Flow Rate FiO2 03/06/18 11:04 20 03/06/18 10:50 98.7 80 24 171/96 (121) 99 03/06/18 07:14 98.1 68 20 163/91 (115) 96 03/06/18 07:04 18 03/06/18 05:06 98.6 75 16 176/97 (123) 97 03/06/18 01:05 98.8 80 16 155/81 (105) 96 03/06/18 00:47 03/05/18 22:58 89 18 158/81 (106) 99 Room Air 03/05/18 20:09 98 Room Air 03/05/18 20:06 98.1 83 18 171/112 (131) 98 I/O 03/05/18 03/05/18 03/05/18 03/06/18 03/06/18 03/06/18 07:00 15:00 23:00 07:00 15:00 23:00 Intake Total 1000 ml 1300 ml Balance 1000 ml 1300 ml Intake Oral 200 ml IV Total 1000 ml 1100 ml # Voids 1 Result Diagram: 03/05/18201403/05/182014 Imaging Last Impressions Chest X-Ray 03/05/182018 Signed Impressions: Service Date/Time: Monday, March 05, 2018 20:29 - CONCLUSION: No evidence of acute cardiopulmonary disease. Danny Gao MD Objective Remarks GENERAL: WDWN female patient lying in bed asleep, easily awakens to voice. INAD. SKIN: No rashes, ecchymoses or lesions. Cool and dry. HEAD: Atraumatic. Normocephalic. No temporal or scalp tenderness. EYES: Pupils equal round and reactive. Extraocular motions intact. No scleral icterus. No injection or drainage. ENT: Nose without bleeding or purulent drainage. Airway patent. MMM. NECK: Trachea midline. CARDIOVASCULAR: Regular rate and rhythm without murmurs, gallops, or rubs. RESPIRATORY: Clear to auscultation. Breath sounds equal bilaterally. No wheezes , rales, or rhonchi. GASTROINTESTINAL: Abdomen soft, mildly tender to palpation diffusely, nondistended. No hepato-splenomegaly, or palpable masses. No guarding. MUSCULOSKELETAL: Extremities without clubbing, cyanosis, or edema. No joint tenderness, effusion, or edema noted. No calf tenderness. +bilateral paraspinal thoracolumbar tenderness to palpation. NEUROLOGICAL: Awake and alert. Cranial nerves II through XII grossly intact. Motor and sensory grossly within normal limits. Normal speech. PSYCHIATRIC: Calm and cooperative. Medications and IVs Current Medications Medications (Trade) Dose Ordered Sig/Cuco Route Start Time Stop Time Status Last Admin Ceftriaxone Sodium 1000 mg/ Sodium Chloride 100 ml @ 200 mls/hr Q24H IV 03/06/18 23:00 (Compazine Inj) 10 mg Q6H PRN IV PUSH 03/06/18 00:45 Sodium Chloride 1,000 ml @ 100 mls/hr Q10H IV 03/06/18 00:32 03/06/18 07:50 (NS Flush) 2 ml UNSCH PRN IV FLUSH 03/06/18 00:45 (NS Flush) 2 ml BID IV FLUSH 03/06/18 09:00 (Tylenol) 650 mg Q4H PRN PO 03/06/18 00:45 03/06/18 02:19 (Zofran Inj) 4 mg Q6H PRN IVP 03/06/18 00:45 03/06/18 05:40 (Narcan Inj) 0.4 mg UNSCH PRN IV PUSH 03/06/18 00:45 (Claudetet-Colace) 1 tab BID PO 03/06/18 09:00 03/06/18 10:58 (Milk Of Magnesia Liq) 30 ml Q12H PRN PO 03/06/18 00:45 (Senokot) 17.2 mg Q12H PRN PO 03/06/18 00:45 (Dulcolax Supp) 10 mg DAILY PRN RECTAL 03/06/18 00:45 (Lactulose Liq) 30 ml DAILY PRN PO 03/06/18 00:45 (Morphine Inj) 2 mg Q3H PRN IV 03/06/18 02:45 03/06/18 14:18 A/P Assessment and Plan 1. Intractable nausea/vomiting Uncertain etiology, ?cannabis hyperemesis syndrome ?gastroenteritis hx of previous cholecystectomy CT of the abdomen/pelvis negative for acute process Urine test negative -Consult GI, appreciate assistance -IVF -Clear liquid diet -Continue Zofran and Compazine as needed for N/V 2. Urinary tract infection UCX growing GNR -Continue on IV Rocephin -Follow up on final UCX results 3. Hypertension No reported hx of HTN -initiate antihypertensive therapy with Norvasc 5mg daily -continue to monitor BP and adjust treatment accordingly 4. Hypokalemia Status post repletion in the emergency department -Repeat BMP in am 5. Mid back pain Possibly musculoskeletal secondary to intractable vomiting ?drug seeking behavior, patient asleep upon entering the room but requesting an increase in pain medication due to being unable to get comfortable -continue Morphine IV prn -K thermia pad 6. Kidney scarring CT abd/pelvis showed kidneys have a slightly lobulated appearance slightly worse than in 2015. Creatinine 0.87/GFR 74 -monitor BMP 7. Polysubstance abuse Patient admits to using marijuana however denies any cocaine use Urine drug screen positive for cocaine -Cessation counseling provided FEN CLD Electrolytes: monitor and replete prn NS at 100 cc/hour Kim Crawford Mar 06, 2018 15:09
[2018-03-06 15:29] VITALS: BP 187/100; PULSE 60; RESP 16; TEMP 98.5; O2SAT 95
[2018-03-06] MEDS ORDERED: amLODIPine BESYLATE 5 MG TAB PO ONE (15:30)
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
[2018-03-06] MEDS ORDERED: cloNIDine HCL 0.1 MG TAB PO PRN (16:45)
[2018-03-06] MEDS: PROCHLORPERAZINE INJ 10 MG/2 ML VIAL IV PUSH PRN (17:29)
[2018-03-06] MEDS: PANTOPRAZOLE SODIUM 40 MG VIAL IV PUSH SCH (19:49)
[2018-03-06 21:02] VITALS: BP 153/94; PULSE 70; RESP 16; TEMP 99.5; O2SAT 99
[2018-03-06] MEDS: METOCLOPRAMIDE HCL 10 MG/2 ML VIAL IV PUSH PRN (23:26)
[2018-03-06] MEDS: cefTRIAXone INJ 1,000 MG in SODIUM CHLORIDE 0.9% INJ 100 ML IV SCH (23:29)
[2018-03-07] MEDS: MORPHINE SULFATE 2 MG/ML SYRINGE IV PRN ×4 (01:09→14:40)
[2018-03-07 01:33] VITALS: BP 169/97; PULSE 69; RESP 16; TEMP 98.6; O2SAT 97
[2018-03-07] MEDS: ONDANSETRON HCL 4 MG/2 ML VIAL IVP PRN (04:38)
[2018-03-07] MEDS: PANTOPRAZOLE SODIUM 40 MG VIAL IV PUSH SCH (04:38)
[2018-03-07] MEDS: SODIUM CHLOR 0.9% 1000 ML INJ 1,000 ML IV SCH (04:44)
[2018-03-07 05:58] LABS: AUTOMATED NEUTROPHIL # 5.3 TH/MM3 (1.8-7.7); BASOPHIL # 0.1 TH/MM3 (0-0.2); BASOPHIL % 0.7 % (0.0-2.0); EOSINOPHIL # 0.1 TH/MM3 (0-0.4); EOSINOPHIL % 0.8 % (0.0-4.0); HEMATOCRIT 38.5 % (35.0-46.0); HEMOGLOBIN 13.3 GM/DL (11.6-15.3); LYMPH % 32.3 % (9.0-44.0); LYMPHOCYTE # 2.9 TH/MM3 (1.0-4.8); MEAN CELL VOLUME 88.8 FL (80.0-100.0); MEAN CORPUSCULAR HEMOGLOBIN 30.6 PG (27.0-34.0); MEAN CORPUSCULAR HGB CONC 34.4 % (32.0-36.0); MEAN PLATELET VOLUME 8.7 FL (7.0-11.0); MONOCYTE # 0.5 TH/MM3 (0-0.9); NEUT % 60.2 % (16.0-70.0); PLATELET COUNT 274 TH/MM3 (150-450); RED BLOOD COUNT 4.34 MIL/MM3 (4.00-5.30); RED CELL DISTRIBUTION WIDTH 13.3 % (11.6-17.2); WHITE BLOOD COUNT 8.9 TH/MM3 (4.0-11.0)
[2018-03-07 06:31] LABS: BICARBONATE 24.1 MEQ/L (21.0-32.0); CALCIUM 8.9 MG/DL (8.5-10.1); CREATININE 0.73 MG/DL (0.50-1.00)
[2018-03-07 08:00] VITALS: BP 167/98; PULSE 72; RESP 20; TEMP 97.6; O2SAT 95
[2018-03-07] MEDS: SODIUM CHLORIDE 0.9% FLUSH 10 ML FLUSH IV FLUSH SCH ×2 (09:00→20:39)
[2018-03-07] MEDS: DOCUSATE SODIUM 50 MG/SENNA 8.6 MG TAB PO SCH ×2 (09:32→20:39)
[2018-03-07] MEDS: METOCLOPRAMIDE HCL 10 MG/2 ML VIAL IV PUSH PRN (09:32)
[2018-03-07] MEDS: amLODIPine BESYLATE 5 MG TAB PO SCH (09:32)
[2018-03-07 12:00] VITALS: BP 144/87; PULSE 68; RESP 20; TEMP 98.2; O2SAT 98
[2018-03-07] MEDS ORDERED: PROPOFOL 200 MG/20 ML AMP IV ONE (12:00)
[2018-03-07] MEDS ORDERED: SUCCINYLCHOLINE CHLORIDE 100 MG/5 ML SYRINGE IV PUSH ONE (12:00)
[2018-03-07] MEDS ORDERED: LIDOCAINE HCL 1% PF 5 ML SYRINGE OTHER ONE (12:00)
[2018-03-07] MEDS ORDERED: METOPROLOL TARTRATE 25 MG TAB PO PRN (12:30)
[2018-03-07] MEDS ORDERED: INSULIN HUMAN REGULAR 1,000 UNITS/10 ML VIAL SQ PRN (12:30)
[2018-03-07] MEDS ORDERED: SODIUM CHLORID 0.9% 500 ML IV PRN (12:30)
[2018-03-07] MEDS ORDERED: CHLORHEXIDINE GLUCONATE 2 % 1 PACK (2 CLOTHS) TOPICAL PRN (12:30)
[2018-03-07] MEDS ORDERED: POVIDONE IODINE 5% (ANTISEPSIS KIT) 4 APPLICATIONS EACH NARE PRN (12:30)
[2018-03-07] MEDS ORDERED: LACTATED RINGER'S 1000 ML IV PRN (12:30)
--- NOTE | 2018-03-07 13:20 | PD.PROCEDR ---
GI Procedure PROCEDURE PERFORMED EGD with biopsy INDICATION FOR PROCEDURE Nausea with vomiting PROCEDURE: The procedure, risks and benefits were discussed with Patient/POA and informed consent was obtained. Anesthesia sedated Patient with Diprivan. Patient was placed in the left lateral decubitus position. EGD: The Pentax videoscope was introduced through the oropharynx and advanced to the second portion of the duodenum under direct visualization. Retroflexion was performed in the stomach. FINDINGS: The esophagus there was some patchy erythema in the distal esophagus of unclear significance probable esophagitis secondary to nausea and vomiting biopsies were taken for further evaluation The stomach there was patchy erythema throughout the gastric mucosa no ulcerations no erosions no blood or bleeding antral biopsies were taken for further evaluation The duodenum this was normal ESTIMATED BLOOD LOSS: None SPECIMENS REMOVED: Esophageal and gastric biopsies COMPLICATIONS: None IMPRESSION: Esophagitis Gastritis PLAN: Await biopsies Continue PPI Advance diet as tolerated Most likely etiology for her nausea and vomiting his polysubstance abuse patient to stop drug use Not much to add from a GI standpoint We will sign off Oumar Moreno MD Mar 07, 2018 13:19
[2018-03-07] MEDS ORDERED: *ONDANSETRON 4 MG VIAL PERIprocedural Use ONLY ONE (13:33)
[2018-03-07] MEDS ORDERED: *PROMETHAZINE 25 MG/ML VIAL PERIprocedural use ONLY ONE ×2 (13:52→13:54)
[2018-03-07] MEDS ORDERED: DO NOT ADM ANY ANTICOAGULANT DRUGS PRN (14:30)
[2018-03-07] MEDS: DULoxetine HCl DR 60 MG CAP PO SCH (15:45)
[2018-03-07] MEDS ORDERED: LORazepam 0.5 MG TAB PO PRN (15:45)
--- NOTE | 2018-03-07 15:55 | HHI.PR ---
Subjective Remarks The patient had persistent nausea and vomiting. She complained of diffuse aches and pains. She wanted her home medications restarted. She was willing to try a diet a little later. Discussed with nursing. Objective Vitals Vital Signs Date Time Temp Pulse Resp B/P (MAP) Pulse Ox O2 Delivery O2 Flow Rate FiO2 03/07/18 14:00 83 24 150/90 (110) 99 Room Air 03/07/18 13:45 69 15 143/93 (110) 98 Room Air 03/07/18 13:30 76 13 115/62 (79) 99 Room Air 03/07/18 13:29 98.2 82 13 139/89 (106) 100 Room Air 03/07/18 12:00 98.2 68 20 144/87 (106) 98 03/07/18 09:42 20 03/07/18 08:00 97.6 72 20 167/98 (121) 95 03/07/18 01:33 98.6 69 16 169/97 (121) 97 03/06/18 21:02 99.5 70 16 153/94 (113) 99 I/O 03/06/18 03/06/18 03/06/18 03/07/18 03/07/18 03/07/18 07:00 15:00 23:00 07:00 15:00 23:00 Intake Total 1300 ml 100 ml Balance 1300 ml 100 ml Intake Oral 200 ml IV Total 1100 ml Other 100 ml # Voids 2 Result Diagram: 03/07/18 0536 03/07/18 0536 Imaging Last Impressions Chest X-Ray 03/05/182018 Signed Impressions: Service Date/Time: Monday, March 05, 2018 20:29 - CONCLUSION: No evidence of acute cardiopulmonary disease. Danny Gao MD Objective Remarks GENERAL: Appears uncomfortable. SKIN: No rashes, ecchymoses or lesions. Cool and dry. HEAD: Atraumatic. Normocephalic. No temporal or scalp tenderness. EYES: Pupils equal round and reactive. Extraocular motions intact. No scleral icterus. No injection or drainage. ENT: Nose without bleeding or purulent drainage. Airway patent. MMM. NECK: Trachea midline. CARDIOVASCULAR: Regular rate and rhythm without murmurs, gallops, or rubs. RESPIRATORY: Clear to auscultation. Breath sounds equal bilaterally. No wheezes , rales, or rhonchi. GASTROINTESTINAL: Abdomen soft, mildly tender to palpation diffusely, nondistended. No hepato-splenomegaly, or palpable masses. No guarding. MUSCULOSKELETAL: Extremities without clubbing, cyanosis, or edema. No joint tenderness, effusion, or edema noted. +bilateral paraspinal thoracolumbar tenderness to palpation. NEUROLOGICAL: Awake and alert. Cranial nerves II through XII grossly intact. Motor and sensory grossly within normal limits. Normal speech. PSYCHIATRIC: Calm and cooperative. Procedures EGD Medications and IVs Current Medications Medications (Trade) Dose Ordered Sig/Cuco Route Start Time Stop Time Status Last Admin Ceftriaxone Sodium 1000 mg/ Sodium Chloride 100 ml @ 200 mls/hr Q24H IV 03/06/18 23:00 03/06/18 23:29 (Compazine Inj) 10 mg Q6H PRN IV PUSH 03/06/18 00:45 03/06/18 17:29 (NS Flush) 2 ml UNSCH PRN IV FLUSH 03/06/18 00:45 (NS Flush) 2 ml BID IV FLUSH 03/06/18 09:00 (Tylenol) 650 mg Q4H PRN PO 03/06/18 00:45 03/06/18 02:19 (Zofran Inj) 4 mg Q6H PRN IVP 03/06/18 00:45 03/07/18 04:38 (Narcan Inj) 0.4 mg UNSCH PRN IV PUSH 03/06/18 00:45 (Claudette-Colace) 1 tab BID PO 03/06/18 09:00 03/07/18 09:32 (Milk Of Magnesia Liq) 30 ml Q12H PRN PO 03/06/18 00:45 (Senokot) 17.2 mg Q12H PRN PO 03/06/18 00:45 (Dulcolax Supp) 10 mg DAILY PRN RECTAL 03/06/18 00:45 (Lactulose Liq) 30 ml DAILY PRN PO 03/06/18 00:45 (Norvasc) 5 mg DAILY PO 03/07/18 09:00 03/07/18 09:32 (Catapres) 0.1 mg Q6H PRN PO 03/06/18 16:45 Lactated Ringer's 1,000 ml @ 30 mls/hr Q24H PRN IV 03/07/18 12:30 03/10/18 12:29 03/07/18 12:02 Sodium Chloride 500 ml @ 30 mls/hr [id number] PRN IV 03/07/18 12:30 03/10/18 12:29 (Lopressor) 25 mg FOOD SAFETY OFFICER PRN PO 03/07/18 12:30 03/10/18 12:29 (Betadine 5% Antisepsis Kit) 1 applic FOOD SAFETY OFFICER PRN EACH NARE 03/07/18 12:30 03/10/18 12:29 (Chlorhexidine 2% Cloth) 3 pack FOOD SAFETY OFFICER PRN TOPICAL 03/07/18 12:30 03/10/18 12:29 (NovoLIN R INJ) See Protocol Table ... FOOD SAFETY OFFICER PRN SQ 03/07/18 12:30 03/10/18 12:29 Miscellaneous Information ALL NURSING DEPARTME... UNSCH PRN .XX 03/07/18 14:30 03/08/18 14:29 Potassium Chloride 100 ml @ 50 mls/hr Q2H IV 03/07/18 16:00 03/07/18 19:59 (Ativan) 0.5 mg Q8H PRN PO 03/07/18 15:45 UNV (Vistaril) 50 mg Q6H PRN PO 03/07/18 15:45 UNV (Desyrel) 100 mg HS PO 03/07/18 21:00 (Cymbalta Dr) 60 mg DAILY PO 03/07/18 15:45 A/P Assessment and Plan Intractable nausea/vomiting Uncertain etiology, ?cannabis hyperemesis syndrome ?gastroenteritis hx of previous cholecystectomy CT of the abdomen/pelvis negative for acute process Urine test negative -Consult GI, appreciate assistance. EGD with esophagitis and gastritis. -IVF -ADAT -Continue antiemetics as needed for N/V -PPI. - drug cessation recommended. Urinary tract infection UCX growing e coli -Continue IV Rocephin Hypertension No reported hx of HTN -initiate antihypertensive therapy with Norvasc 5mg daily for now -continue to monitor BP and adjust treatment accordingly Hypokalemia Status post repletion. -Repeat BMP in am Mid back pain Possibly musculoskeletal secondary to intractable vomiting ?drug seeking behavior, patient asleep upon entering the room but requesting an increase in pain medication due to being unable to get comfortable -IV Tylenol and PO Tramadol as needed. -K thermia pad Kidney scarring CT abd/pelvis showed kidneys have a slightly lobulated appearance slightly worse than in 2015. Creatinine 0.87/GFR 74 -monitor BMP 7Polysubstance abuse Patient admits to using marijuana however denies any cocaine use Urine drug screen positive for cocaine -Cessation counseling provided SCDs Calvin Fox DO Mar 07, 2018 15:55
[2018-03-07 16:00] VITALS: BP 144/87; PULSE 68; RESP 20; TEMP 98.2; O2SAT 98
[2018-03-07] MEDS: ACETAMINOPHEN 1000 MG/100 ML 100 ML IV SCH (17:26)
[2018-03-07] MEDS: PROCHLORPERAZINE INJ 10 MG/2 ML VIAL IV PUSH PRN ×2 (18:14→23:50)
[2018-03-07] MEDS: POTASSIUM CHLOR 20 MEQ PREMIX 100 ML IV SCH ×2 (18:15→20:35)
[2018-03-07] MEDS ORDERED: traZODone HCL 100 MG TAB PO SCH (21:00)
[2018-03-07 21:22] VITALS: BP 174/99; PULSE 87; RESP 16; TEMP 98.4; O2SAT 96
[2018-03-07] MEDS: cefTRIAXone INJ 1,000 MG in SODIUM CHLORIDE 0.9% INJ 100 ML IV SCH (23:50)
[2018-03-08 00:08] VITALS: BP 158/84; PULSE 81; RESP 16; TEMP 98.1; O2SAT 96
[2018-03-08] MEDS: ACETAMINOPHEN 1000 MG/100 ML 100 ML IV SCH ×2 (00:27→08:00)
[2018-03-08] MEDS: traMADol HCL 50 MG TAB PO PRN ×2 (01:40→08:03)
[2018-03-08 03:37] VITALS: BP_SYST 147; BP_SYST 165; BP_DIAS 104; BP_DIAS 90; PULSE 81; PULSE 97; RESP 18; TEMP 98.1; O2SAT 98
[2018-03-08 08:02] LABS: BICARBONATE 24.9 MEQ/L (21.0-32.0); CALCIUM 9.4 MG/DL (8.5-10.1); CREATININE 0.71 MG/DL (0.50-1.00); MAGNESIUM 2.2 MG/DL (1.5-2.5)
[2018-03-08] MEDS: amLODIPine BESYLATE 5 MG TAB PO SCH (08:02)
[2018-03-08] MEDS: DULoxetine HCl DR 60 MG CAP PO SCH (08:02)
[2018-03-08] MEDS: DOCUSATE SODIUM 50 MG/SENNA 8.6 MG TAB PO SCH (08:03)
[2018-03-08] MEDS: SODIUM CHLORIDE 0.9% FLUSH 10 ML FLUSH IV FLUSH SCH (08:03)
[2018-03-08] MEDS: PROCHLORPERAZINE INJ 10 MG/2 ML VIAL IV PUSH PRN (08:09)
[2018-03-08 08:12] VITALS: BP 160/98; PULSE 82; RESP 20; TEMP 98.2; O2SAT 98
[2018-03-08] MEDS ORDERED: PANTOPRAZOLE SOD 40 MG DELAYED RELEASE TAB PO SCH (09:00)
[2018-03-08] MEDS ORDERED: DULO1CAP3 PO (11:42)
[2018-03-08] MEDS ORDERED: AMLO5 PO (11:42)
[2018-03-08] MEDS ORDERED: TRAM50 PO (11:42)
[2018-03-08] MEDS ORDERED: PANT40TA3 PO (11:42)
--- NOTE | 2018-03-08 11:45 | HHI.DCPOC ---
Discharge Care Plan Diagnosis: (1) Gastritis (2) PTSD (post-traumatic stress disorder) (3) Nausea & vomiting Goals to Promote Your Health * To prevent worsening of your condition and complications * To maintain your health at the optimal level Directions to Meet Your Goals Take your medications as prescribed Follow your dietary instruction Follow activity as directed Keep your appointments as scheduled Take your immunizations and boosters as scheduled If your symptoms worsen call your PCP, if no PCP go to Urgent Care Center or Emergency Room Smoking is Dangerous to Your Health. Avoid second hand smoke Call the 24-hour hour crisis hotline for domestic abuse at Calvin Fox DO Mar 08, 2018 11:45
[2018-03-08] MEDS ORDERED: CEFU1TAB18 PO (11:48)
[2018-03-08] MEDS ORDERED: POTA-163 PO (11:49)
--- NOTE | 2018-03-08 11:53 | HHI.DS ---
Discharge Summary Admission Date Mar 05, 2018 at 22:56 Discharge Date: Mar 08, 2018 Admitting Diagnosis Intractable vomiting, UTI (1) Gastritis ICD Code: K29.70 - Gastritis, unspecified, without bleeding (2) PTSD (post-traumatic stress disorder) ICD Code: F43.10 - Post-traumatic stress disorder, unspecified (3) Nausea & vomiting ICD Code: R11.2 - Nausea with vomiting, unspecified Procedures EGD Brief History - From Admission 37-year-old female with a past medical history significant for anxiety presents to the emergency department for the second time in 24 hours for the evaluation of nausea/vomiting. The patient reports her symptoms started approximately 3 days ago. She was seen in the emergency department yesterday, discharged with Compazine however given insurance complications she ended up receiving Phenergan. She reports the Phenergan did not relieve her nausea and vomiting and she has been unable to tolerate any p.o. until her arrival in the emergency department today. She endorses subjective fevers/chills. Denies any chest pain or shortness of breath. Crampy abdominal pain. No weakness or fatigue. No lateralizing signs/symptoms. No dysuria. CBC/BMP: 03/07/18 0536 03/08/18 0709 Significant Findings Laboratory Tests Test 03/05/18 20:15 03/07/18 05:36 03/08/18 07:09 Neutrophils (%) (Auto) 77.7 % (16.0-70.0) Urine Turbidity HAZY (CLEAR) Urine Protein 100 mg/dL (NEG-TRACE) Urine Ketones 80 mg/dL (NEG) Urine Occult Blood TRACE (NEG) Urine Leukocyte Esterase MOD (NEG) Urine RBC 8 /hpf (0-3) Urine WBC 22 /hpf (0-5) Urine Bacteria MOD /hpf (NONE) Urine Mucus MOD /lpf (OCC) Aspartate Amino Transf (AST/SGOT) 7 U/L (15-37) Potassium Level 3.3 MEQ/L (3.5-5.1) 3.2 MEQ/L (3.5-5.1) 3.3 MEQ/L (3.5-5.1) Estimat Glomerular Filtration Rate 74 ML/MIN (>89) Urine Cocaine Screen POS (NEG) Urine Cannabinoids Screen POS (NEG) Blood Urea Nitrogen 6 MG/DL (7-18) Imaging Last Impressions Chest X-Ray 03/05/182018 Signed Impressions: Service Date/Time: Monday, March 05, 2018 20:29 - CONCLUSION: No evidence of acute cardiopulmonary disease. Danny Gao MD PE at Discharge GENERAL: Appears uncomfortable. SKIN: No rashes, ecchymoses or lesions. Cool and dry. HEAD: Atraumatic. Normocephalic. No temporal or scalp tenderness. EYES: Pupils equal round and reactive. Extraocular motions intact. No scleral icterus. No injection or drainage. ENT: Nose without bleeding or purulent drainage. Airway patent. MMM. NECK: Trachea midline. CARDIOVASCULAR: Regular rate and rhythm without murmurs, gallops, or rubs. RESPIRATORY: Clear to auscultation. Breath sounds equal bilaterally. No wheezes , rales, or rhonchi. GASTROINTESTINAL: Abdomen soft, mildly tender to palpation diffusely, nondistended. No hepato-splenomegaly, or palpable masses. No guarding. MUSCULOSKELETAL: Extremities without clubbing, cyanosis, or edema. No joint tenderness, effusion, or edema noted. +bilateral paraspinal thoracolumbar tenderness to palpation. NEUROLOGICAL: Awake and alert. Cranial nerves II through XII grossly intact. Motor and sensory grossly within normal limits. Normal speech. PSYCHIATRIC: Calm and cooperative. Pt update on day of discharge The patient was feeling better. She said she was still nauseous at times. She was tolerating some food. She requested to have some of her medications refilled. She said she would like to continue taking her blood pressure medication. Discussed with nursing. Hospital Course Intractable nausea/vomiting CT of the abdomen/pelvis negative for acute process. We consulted GI. EGD with esophagitis and gastritis. She received IVFs and antiemetics as well as a PPI. Her diet was advanced. She will follow up with GI as an outpt. Urinary tract infection Urine culture grew e coli. She received IV Rocephin and will complete a course of Ceftin. Hypertension No reported hx of HTN. Amlodipine was started and the pt will follow up with her PCP. Hypokalemia Status post repletion. Her diet was advanced. She will continue supplementation upon discharge. Polysubstance abuse Patient admits to using marijuana, however, denies any cocaine use. Urine drug screen positive for cocaine. Cessation counseling provided. Pt Condition on Discharge: Stable Discharge Disposition: Discharge Home Discharge Time: <= 30 minutes Discharge Instructions DIET: Follow Instructions for: As Tolerated, No Restrictions Activities you can perform: Regular-No Restrictions Follow up Referrals: Gastroenterology - 2 Weeks with Oumar Moreno MD PCP Follow-up - 1 Week Psychiatry Adult New Medications: Cefuroxime (Ceftin) 250 Mg Tab 250 MG PO BID for UTI, #4 TAB Ondansetron Odt (Zofran Odt) 4 Mg Tab 4 MG SL Q8HR PRN for Nausea/Vomiting, #30 TAB 0 Refills Potassium Chloride ER (Potassium Chloride ER) 20 Meq Tab 20 MEQ PO DAILY for Electrolyte Replacement, #7 TAB 0 Refills Amlodipine (Norvasc) 5 Mg Tab 5 MG PO DAILY for Blood Pressure Management, #[address] (Duloxetine DR) 60 Mg Capdr 60 MG PO DAILY for Depression Control, #30 CAP Pantoprazole (Pantoprazole) 40 Mg Tab 40 MG PO DAILY for GI, #30 TAB Tramadol (Ultram) 50 Mg Tab 50 MG PO Q6H PRN for PAIN SCALE 1 TO 10, #12 TAB Continued Medications: Prochlorperazine Supp (Prochlorperazine Supp) 25 Mg Supp 25 MG RECTAL Q12HR PRN for NAUSEA OR VOMITING for 1 Day, SUPP 0 Refills Calvin Fox DO Mar 08, 2018 11:53
[2018-03-08] MEDS ORDERED: ZOFR4TAB3 SL (11:54)
[2018-03-08 12:03] VITALS: BP 139/96; PULSE 70; RESP 20; TEMP 98.2; O2SAT 98
== END 2018-03-08 12:52 | disposition home or self-care (01) ==
LOC: NEPE 20:01 → NEDA 22:56 → NEPGCP 03-06 00:53
PROVIDERS: ADMIT Hospitalist; ATTEND Hospitalist
DX: R11.2 Nausea with vomiting, unspecified (principal); N39.0 Urinary tract infection, site not specified; B96.20 Unspecified Escherichia coli [E. coli] as the cause of diseases classified elsewhere; E87.6 Hypokalemia; R05 Cough; K29.50 Unspecified chronic gastritis without bleeding; K20.9 Esophagitis, unspecified; I10 Essential (primary) hypertension; F43.10 Post-traumatic stress disorder, unspecified; F32.9 Major depressive disorder, single episode, unspecified; M19.90 Unspecified osteoarthritis, unspecified site; M54.9 Dorsalgia, unspecified; F41.9 Anxiety disorder, unspecified; F41.0 Panic disorder [episodic paroxysmal anxiety]; F12.90 Cannabis use, unspecified, uncomplicated; F17.210 Nicotine dependence, cigarettes, uncomplicated; Z79.899 Other long term (current) drug therapy
CPT/HCPCS: 00731; 43239; 71045; 80048; 80053; 80307; 81001; 83690; 83735; 84703; 85025; 87077; 87086; 87186; 88305; 88312; 96361; 96365; 96366; 96375; 96376; 99285; C9113; G0378; J0131; J0330; J0696; J0780; J2270; J2405; J2550; J2765; J3480; J7030; J7120